=== PATIENT | female | born 1990 | race Asian ===

== ENCOUNTER 2018-03-11 14:42 | Emergency (ER) | payer OTHER ==
[~2018-03-11] VITALS: Ht 152.4 cm; Wt 52.2 kg
[2018-03-11 14:43] VITALS: Ht 152.4 cm; Wt 52.2 kg
[2018-03-11 16:24] VITALS: BP 117/68
== END 2018-03-11 16:24 | disposition home or self-care (01) ==
LOC: ED 14:42
DX: S61.231A Puncture wound without foreign body of left index finger without damage to nail, initial encounter (principal); W46.0XXA Contact with hypodermic needle, initial encounter; Y93.89 Activity, other specified; Y92.89 Other specified places as the place of occurrence of the external cause; Y99.8 Other external cause status